=== PATIENT | female | born 1970 | race Caucasian/White ===

== ENCOUNTER 2018-12-07 16:10 | Emergency (ER) | payer MEDICAID ==
[2018-12-07 16:23] VITALS: BP 130/88
--- NOTE | 2018-12-07 16:41 | EDPHY ---
H & P Time Seen by Provider: 12/07/18 16:17 HPI/ROS: This patient reports a 10 day history of coughing that is not improving. She reports that she had a fever for the 1st 3 days of the cough that felt low- grade her that has since resolved with cough persists. She describes the cough is dry and hacking-nonproductive. Cough is prevented sleep at times. She reports associated left ear pressure that is mild and fatigue. She also had a sore throat the 1st few days of illness which has since resolved. She has taken [id number] Zyrtec without improvement and notes no other exacerbating factors. ROS: Constitutional: Fatigue. No high fevers. Neuro: No complaints including no headache. HEENT: No sinus pain. Otherwise as per HPI. Pulmonary: No respiratory distress. No pleuritic pain. No hemoptysis. Cardiovascular: No lightheadedness. No lower extremity swelling. GI: No abdominal pain. No vomiting or diarrhea Integumentary: No diaphoresis, pallor or rash 7 point review of symptoms is performed and otherwise negative with exception of pertinent positives and negatives listed in HPI and ROS Social History: No drug use, does not drink alcohol Smoking Status: Never smoked Physical Exam: Physical Exam Vital signs are normal. General: No acute distress HEENT: Nose: Clear discharge bilaterally. No sinus tenderness to percussion. Ears: External canals and tympanic membranes are clear with no erythema or abnormal findings bilaterally. Oropharynx: No erythema or exudates. No dysphonia. No drooling or stridor. Eyes: Pupils equal and react to light. Extraocular motions are intact. Neck: Supple with no meningismus. No lymphadenopathy Lungs: Patient has mild wheezing bilaterally with rhonchi at the left base. Otherwise clear to auscultation with no rales. No increased work of breathing. Cardiac: Regular rate and rhythm with no murmur gallop or rub no lower extremity edema or calf tenderness. Skin: No rash or pallor. Neuro: Alert with no focal deficits noted. Initial differential diagnosis: Acute bronchitis, URI with cough, doubt pneumonia Constitutional: Initial Vital Signs Temperature (C) 37 C 12/07/18 16:17 Heart Rate 106 H 12/07/18 16:17 Respiratory Rate 20 12/07/18 16:17 Blood Pressure 130/88 H 12/07/18 16:17 O2 Sat (%) 95 03/18/19 16:17 O2 Delivery Mode Room Air Allergies/Adverse Reactions: codeine Allergy (Verified 12/07/18 16:16) iodine Allergy (Verified 12/07/18 16:16) shellfish derived Allergy (Verified 12/07/18 16:16) Home Medications: Medication Instructions Recorded Albuterol Hfa Anes Only [Proair 2 puffs IH Q4 PRN #1 mdi 12/07/18 Hfa Icu (*)] Azithromycin [Zithromax] 250 mg PO DAILY #6 tab 12/07/18 Benzonatate [Tessalon Pearles (RX)] 100 - 200 mg PO TID PRN #20 cap 12/07/18 ZYRTEC 12/07/18 MDM/Departure - MDM ED Course/Re-evaluation: Discussion: Patient with normal vital signs with cough for 10 days duration is not improving concerning for potential bronchitis from atypical bacteria such as mycoplasma or pertussis. Given this consideration will treat her with macrolide antibiotic in addition to albuterol inhaler and Tessalon Perles. I counseled regarding this in some detail answered all her questions. Clinically I do not appreciate evidence of lower respiratory infection, sepsis or other red flag findings in this patient would warrant further workup at this time. However, she understands need to return emergency department should she develop any worsening of symptoms despite the treatment plan. - Depart Disposition: Home, Routine, Self-Care Clinical Impression: Acute bronchitis Qualifiers: Bronchitis organism: unspecified organism Qualified Code(s): J20.9 - Acute bronchitis, unspecified Condition: Good Instructions: Acute Bronchitis (ED) Additional Instructions: Diagnosis: Acute bronchitis Plan: Humidifier Zithromax antibiotic Albuterol inhaler for cough, wheeze or shortness of breath Tessalon Perles if needed for cough that prevents sleep. Follow up with primary care physician for any ongoing symptoms despite the treatment plan. Stand Alone Forms: Work Excuse Prescriptions: Albuterol Hfa Anes Only [Proair Hfa Icu (*)] 2 puffs IH Q4 PRN #1 mdi PRN Reason: Wheezing Azithromycin [Zithromax] 250 mg PO DAILY #6 tab Benzonatate [Tessalon Pearles (RX)] 100 - 200 mg PO TID PRN #20 cap PRN Reason: cough Referrals: NONE *PRIMARY CARE P,. [Primary Care Provider] - As per Instructions Daya Fernandes MD [Medical Doctor] - As per Instructions
== END 2018-12-07 16:48 | disposition home or self-care (01) ==
LOC: CED 16:10
DX: J20.9 Acute bronchitis, unspecified (principal)
CPT/HCPCS: 99284-ER